=== PATIENT | male | born 1970 | race Caucasian/White ===

== ENCOUNTER 2017-09-23 20:12 | Emergency (ER) | END 2017-09-24 00:42 | disposition home or self-care (01) ==

== ENCOUNTER 2017-09-28 05:24 | Inpatient (IN) | END 2017-10-01 16:09 | disposition home or self-care (01) | DRG 394 ==

== ENCOUNTER 2017-12-15 03:27 | Inpatient (IN) | END 2017-12-17 12:25 | disposition home or self-care (01) | DRG 389 ==